=== PATIENT | female | born 1960 | race Caucasian/White ===

== ENCOUNTER → 2024-04-14 14:12 | Outpatient (REF) | payer BC, SELFPAY | LOC: WDC 14:12 | PROVIDERS: ATTENDING PHYSICIAN Family Medicine; OTHER PHYSICIAN Orthopaedic Surgery | DX: Z12.31 Encounter for screening mammogram for malignant neoplasm of breast (principal); Z01.818 Encounter for other preprocedural examination | CPT/HCPCS: 77063; 77067; 93005 ==

== ENCOUNTER → 2024-05-08 11:17 | Outpatient (REF) | payer BC, SELFPAY | LOC: RAD 11:17 | PROVIDERS: ATTENDING PHYSICIAN Family Medicine; FAMILY PHYSICIAN Obstetrics & Gynecology Gynecology | DX: Z78.0 Asymptomatic menopausal state (principal); Z12.31 Encounter for screening mammogram for malignant neoplasm of breast | CPT/HCPCS: 77080 ==

== ENCOUNTER 2024-06-20 08:58 | Outpatient (RCR) | payer BC, SELFPAY | END 2024-06-20 23:59 | disposition home or self-care (01) | LOC: RPT 08:58 | PROVIDERS: ATTENDING PHYSICIAN Orthopaedic Surgery; FAMILY PHYSICIAN Family Medicine | DX: Z47.89 Encounter for other orthopedic aftercare (principal); Z73.6 Limitation of activities due to disability; M62.81 Muscle weakness (generalized); M25.511 Pain in right shoulder; M25.521 Pain in right elbow | CPT/HCPCS: 97010; 97110; 97140; 97161 ==

== ENCOUNTER 2024-07-18 08:07 | Outpatient (RCR) | payer BC, SELFPAY | END 2024-07-18 23:59 | disposition home or self-care (01) | LOC: RPT 08:07 | PROVIDERS: ATTENDING PHYSICIAN Orthopaedic Surgery; FAMILY PHYSICIAN Family Medicine | DX: Z47.89 Encounter for other orthopedic aftercare (principal); Z73.6 Limitation of activities due to disability; M62.81 Muscle weakness (generalized); M25.511 Pain in right shoulder; M25.521 Pain in right elbow | CPT/HCPCS: 97010; 97110; 97112; 97140 ==

== ENCOUNTER 2024-08-13 09:04 | Outpatient (RCR) | payer BC, SELFPAY | END 2024-08-13 23:59 | disposition home or self-care (01) | LOC: RPT 09:04 | PROVIDERS: ATTENDING PHYSICIAN Orthopaedic Surgery; FAMILY PHYSICIAN Family Medicine | DX: Z47.89 Encounter for other orthopedic aftercare (principal); Z73.6 Limitation of activities due to disability; M62.81 Muscle weakness (generalized); M25.511 Pain in right shoulder; M25.521 Pain in right elbow | CPT/HCPCS: 97010; 97110; 97112; 97140 ==

== ENCOUNTER 2024-09-10 16:03 | Outpatient (RCR) | payer BC, SELFPAY | END 2024-09-11 05:57 | disposition home or self-care (01) | LOC: RPT 16:03 | PROVIDERS: ATTENDING PHYSICIAN Orthopaedic Surgery; FAMILY PHYSICIAN Family Medicine | DX: Z47.89 Encounter for other orthopedic aftercare (principal); Z73.6 Limitation of activities due to disability; M62.81 Muscle weakness (generalized); M25.511 Pain in right shoulder; M25.521 Pain in right elbow | CPT/HCPCS: 97010; 97110; 97112; 97140 ==